=== PATIENT | female | born 1995 | race African-American/Black ===

== ENCOUNTER 2017-02-09 01:52 | Emergency (ER) | payer OTHER ==
[~2017-02-09] VITALS: Ht 162.6 cm; Wt 53.6 kg
[2017-02-09 01:55] VITALS: TEMP 36.6; Ht 162.6 cm; Wt 53.6 kg
[2017-02-09] MEDS ORDERED: ACETAMINOPHEN 500 MG TAB PO STA (02:06)
[2017-02-09] MEDS ORDERED: TRMCR515 TOP (02:31)
[2017-02-09] MEDS ORDERED: ALBU18002 PO (02:31)
--- NOTE | 2017-02-09 02:55 | EMERGENCY ROOM VISIT NOTE ---
History First contact with patient: 01:59 Chief Complaint: LACERATION/CUT (SUT/DERMABOND) Stated Complaint: HEAD BLEEDING,FALL History of Present Illness The patient is a 21 year old female who presents to the Emergency Room with complaints of head injury he was intoxicated. Patient states she tripped and fell backward striking her head. Unsure LOC. Patient states there is bleeding back there. She is unsure there is a laceration. Patient denies chest pain, dyspnea, neck pain, facial pain, dental pain, numbness, tingling or any other medical complaints. Review of Systems See HPI for pertinent positives & negatives. A total of 10 systems reviewed and were otherwise negative. Past Medical/Surgical History None Social History Smoking Status: Current Some Day Smoker Alcohol Use: occasionally Drug Use: none Marital Status: in relationship Current/Historical Medications Scheduled Triamcinolone Acet (Triamcinolone Acetonide), 1 APPLN TOP DAILY Scheduled PRN Albuterol Sulfate (Proair Respiclick), 2 PUFFS PO QID PRN for SOB/Wheezing Allergies Coded Allergies: Penicillins (Verified Allergy, Intermediate, HIVES, 02/09/17) Uncoded Allergies: MELON (Allergy, Intermediate, ITCHING EYES AND THROAT, 02/09/17) Physical Exam Vital Signs Date Time Temp Pulse Resp B/P (MAP) Pulse Ox O2 Delivery O2 Flow Rate FiO2 02/09/17 01:55 36.6 84 18 125/73 95 Room Air Physical Exam VITALS: Vitals are noted on the nurse's note and reviewed by myself. Vital signs stable. GENERAL: Pleasant female with EtOH odor, in no acute distress, nondiaphoretic, well-developed well-nourished. SKIN: Right parietal region with abrasion present and hematoma The rest of the skin was without rashes, erythema, edema, or bruising. There is no tenting of the skin. Capillary reflex less than 2 seconds. HEAD: Normocephalic EARS: External auditory canals clear, tympanic membranes pearly hodge without erythema or effusion bilaterally. EYES: Pupils equal round and reactive to light and accommodation. Conjunctivae with injection, sclerae without icterus. Extraocular movements intact. NOSE: Patent, turbinates without inflammation or discharge. No sinus tenderness. MOUTH: Mucous membranes moist. Pharynx without erythema or exudate. Uvula midline. Airway patent. Tongue does not deviate. Face: Nontender to palpation, patient can fully open and close mouth, no dental injury NECK: Supple without nuchal rigidity. No lymphadenopathy. No thyromegaly. Cervical spine is nontender. No JVD. HEART: Regular rate and rhythm without murmurs gallops or rubs. LUNGS: Clear to auscultation bilaterally without wheezes, rales or rhonchi. No dullness to percussion. No retractions or accessory muscle use. ABDOMEN: Positive bowel sounds x 4. Normal tympanic percussion. Soft, nontender, without masses or organomegaly. Lal sign negative. No guarding or rebound tenderness. MUSCULOSKELETAL: No muscle atrophy, erythema, or edema noted. No thoracic or lumbar tenderness on exam. Patient can ambulate without difficulties. NEURO: Patient was alert and oriented to person place and time. Normal sensation to light and sharp touch. No focal neurological deficits. Medical Decision & Procedures Laboratory Results Test 02/09/17 02:39 Bedside Glucose 82 mg/dl (70-90) ED Course Prior records/ancillary studies reviewed. Triage Nursing notes reviewed. Additional history obtained from boyfriend. The patient's history was concerning for traumatic head injury Differential diagnosis: Etiologies such as concussion, contusion, fracture, subdural hematoma, epidural hematoma, intraparenchymal hemorrhage, as well as other traumatic pathologies were entertained. Physical examination findings: As above. ER treatment provided: P.o. Tylenol On reassessment the patient felt better. Diagnostics interpreted by me: Imaging studies: neg head CT It appears the patient has a concussion. I discussed the risks and the benefits of CT scanning. Patient is intoxicated so CT imaging was ordered. This is unremarkable. She was counseled on head injury signs and symptoms and verbalized understanding of this. She is advised if symptoms persist to follow- up concussion clinic here in town or here in the ER sooner for headache, fevers , confusion, worsening signs or symptoms or as needed. Patient was neurovascular and neurologically intact. No other injuries are noted. She ambulated out of the ER without difficulties. By the evaluation outlined above emergent etiologies such as fracture, subdural hematoma, epidural hematoma, intraparenchymal hemorrhage, as well as others were deemed relatively unlikely. The pt informed about the findings as listed above. All questions were answered and pleased with the treatment. Return instructions were outlined and the patient was discharged in stable condition. Referral: The patient was referred back to their primary care physician for follow-up in 2 to 3 days for a recheck of the current condition. Medical Decision As above Impression Primary Impression: Head injury Additional Impression: Scalp abrasion Departure Information Dispostion Home / Self-Care Condition GOOD Referrals No Doctor, Assigned (PCP) Patient Instructions [facility] Additional Instructions Read head injury handout and return for any symptoms. Tylenol 1000 mg as needed for pain (Maximum 3000 mg Tylenol in 24 hr period). Avoid alcohol and contact sports/activities for one week and follow up with family doctor prior to returning to these activities if still symptomatic. Ice and elevate head. If your symptoms persist more than a week then follow up with the concussion clinic. Call [phone]. Return to ER sooner for headache, fevers, confusion, worsening signs or symptoms or as needed. Problem Qualifiers Primary Impression: Head injury Encounter type: initial encounter Qualified Codes: S09.90XA - Unspecified injury of head, initial encounter Additional Impression: Scalp abrasion Encounter type: initial encounter Qualified Codes: S00.01XA - Abrasion of scalp, initial encounter
[2017-02-09 03:10] VITALS: BP 136/73; PULSE 94; O2SAT 99
--- NOTE | 2017-02-09 06:27 | DIAGNOSTIC IMAGING REPORT ---
HEAD WITHOUT CONTRAST (CT) CT DOSE: 537.48 mGy.cm HISTORY: Trauma etoh, head injury TECHNIQUE: Multiaxial CT images of the head were performed without the use of intravenous contrast. Comparison: None. Findings: The paranasal sinuses and mastoid air cells are clear. The calvarium and skull base are intact. The ventricles and sulci are within normal limits. There is no mass, hematoma, midline shift, or acute infarct. Impression: No acute intracranial abnormality. The above report was generated using voice recognition software. It may contain grammatical, syntax or spelling errors. Electronically signed by: Sami Conklin M.D. 02/09/2017 6:25 AM Dictated Date/Time: 02/09/2017 6:25 AM
== END 2017-02-09 03:11 | disposition home or self-care (01) ==
LOC: C.EDB 01:54
DX: S00.01XA Abrasion of scalp, initial encounter (principal); W01.10XA Fall on same level from slipping, tripping and stumbling with subsequent striking against unspecified object, initial encounter; F17.210 Nicotine dependence, cigarettes, uncomplicated; F10.929 Alcohol use, unspecified with intoxication, unspecified; Y90.9 Presence of alcohol in blood, level not specified